=== PATIENT | male | born 1965 | race Caucasian/White ===

== ENCOUNTER 2016-09-24 18:39 | Emergency (ER) | payer MEDICAID ==
[~2016-09-24] VITALS: Ht 177.8 cm; Wt 86.2 kg
[2016-09-24 18:55] VITALS: BP_SYST 140
[2016-09-24] MEDS ORDERED: HYDROmorphone 1 MG INJ. 1 MG/ML AMPUL IM ONE (20:00)
[2016-09-24] MEDS ORDERED: DIPHENHYDRAMINE INJ 50 MG/ML VIAL IM ONE (20:00)
[2016-09-24 20:26] LABS: BASOPHILS # (AUTO) 0.1 K/uL (0.0-0.2); BASOPHILS % (AUTO) 0.7 % (0.0-2.0); EOSINOPHILS # (AUTO) 0.4 K/uL (0.0-0.4); EOSINOPHILS % (AUTO) 5.4 % (0.0-4.0); HEMATOCRIT 43.5 % (36-54); LYMPHOCYTES # (AUTO) 2.2 K/uL (1.0-5.5); LYMPHOCYTES % (AUTO) 27.1 % (20.5-51.5); MEAN CORPUSCULAR HEMOGLOBIN 31 pg (27-31); MEAN CORPUSCULAR HGB CONC 34 % (32-36); MEAN CORPUSCULAR VOLUME 90 fL (79.0-98.0); MONOCYTES # (AUTO) 0.7 K/uL (0.0-1.0); MONOCYTES % (AUTO) 8.1 % (1.7-9.3); NEUTROPHILS # (AUTO) 4.9 K/uL (1.8-7.7); NEUTROPHILS % (AUTO) 58.7 % (40.0-70.0); PLATELET COUNT (AUTO) 277 K/uL (130-430); RED BLOOD CELL COUNT(AUTO) 4.84 MIL/uL (4.2-6.2); RED CELL DISTRIBUTION WIDTH 12.4 % (9.0-15.0); WHITE BLOOD COUNT (AUTO) 8.3 K/uL (4.8-10.8)
[2016-09-24 20:39] LABS: POTASSIUM 4.1 mmol/L (3.5-5.1)
[2016-09-24 20:44] LABS: ALBUMIN 4.7 g/dL (3.4-4.8); TOTAL BILIRUBIN 0.6 mg/dL (0.0-1.0)
[2016-09-24 21:55] VITALS: BP_SYST 140
== END 2016-09-24 21:55 | disposition home or self-care (01) ==
LOC: SED 18:39
DX: M25.561 Pain in right knee (principal); G89.18 Other acute postprocedural pain; I10 Essential (primary) hypertension; Z88.2 Allergy status to sulfonamides; Z98.890 Other specified postprocedural states
CPT/HCPCS: 36415; 80053; 85025; 96372; 99284; J1170; J1200

== ENCOUNTER 2017-06-21 21:54 | Emergency (ER) | payer MEDICAID ==
[~2017-06-21] VITALS: Ht 177.8 cm; Wt 86.2 kg
[2017-06-21] MEDS ORDERED: FLUORESCEIN SODIUM 1 MG OPHTHALMIC STRIP OP ONE (21:55)
[2017-06-21] MEDS ORDERED: BALANCED SALT IRRIG SOLN 15 ML IO ONE (21:55)
[2017-06-21 22:17] VITALS: BP_SYST 128
[2017-06-22] MEDS ORDERED: DIPH-TET-PERTUS Vaccine 0.5 ML VIAL (ADACEL) I.M. ONE (01:30)
[2017-06-22 01:43] VITALS: BP_SYST 120
== END 2017-06-22 01:43 | disposition home or self-care (01) ==
LOC: SED 21:54
DX: T15.01XA Foreign body in cornea, right eye, initial encounter (principal); I10 Essential (primary) hypertension; Z88.2 Allergy status to sulfonamides; W22.8XXA Striking against or struck by other objects, initial encounter; Y93.89 Activity, other specified; Y92.89 Other specified places as the place of occurrence of the external cause; Y99.8 Other external cause status
CPT/HCPCS: 90715; 99284

== ENCOUNTER 2018-08-17 15:51 | Emergency (ER) | payer MEDICAID ==
[~2018-08-17] VITALS: Ht 175.3 cm; Wt 86.2 kg
[~2018-08-17 15:51] MED LIST: ALLO100T PO; ALPR0.5T PO; ATEN-168 PO
[2018-08-17 16:05] VITALS: BP_SYST 142
[2018-08-17] MEDS ORDERED: NACL 0.9% 1,000 ML IV ONE (16:13)
--- NOTE | 2018-08-17 16:40 | NUR ---
Placed in room 3 to gown for exam. Side rails up.
--- NOTE | 2018-08-17 16:41 | NUR ---
Patient is awake, alert, and oriented x4. He is complaining of sharp abdominal pain radiating to his back x2 weeks. Patient reports a history of HTN and diverticulitis.
--- NOTE | 2018-08-17 16:45 | NUR ---
ER Dr. Ruelas at bedside examining patient.
[2018-08-17 16:48] LABS: BILIRUBIN,URINE NEGATIVE (NEGATIVE); CLARITY/URINE CLEAR (CLEAR); COLOR,URINE YELLOW (YELLOW); GLUCOSE,URINE NEGATIVE (NEGATIVE); KETONES,URINE TRACE (NEGATIVE); LEUKOCYTE ESTERASE ,URINE NEGATIVE (NEGATIVE); NITRITE, URINE NEGATIVE (NEGATIVE); PH,URINE 5.5 (5.0-8.0); PROTEIN URINE NEGATIVE (NEGATIVE); UROBILINOGEN,URINE 0.2 (0.2-1.0)
[2018-08-17 16:50] LABS: BLOOD, URINE TRACE (NEGATIVE)
[2018-08-17 16:56] LABS: BACTERIA,URINE RARE /HPF (None Seen); MUCUS,URINE 1+ /LPF (None Seen); RBC,URINE 0-3 /HPF (0-3); WBC,URINE 0-3 /HPF (0-3)
[2018-08-17 17:11] LABS: HEMATOCRIT 51.5 % (36-54); HEMOGLOBIN 17.3 g/dL (14.0-18.0); MEAN CORPUSCULAR HEMOGLOBIN 32 pg (27-31); MEAN CORPUSCULAR HGB CONC 34 % (32-36); MEAN CORPUSCULAR VOLUME 93 fL (79.0-98.0); PLATELET COUNT (AUTO) 191 K/uL (130-430); RED BLOOD CELL COUNT(AUTO) 5.51 MIL/uL (4.2-6.2); RED CELL DISTRIBUTION WIDTH 13.1 % (9.0-15.0); WHITE BLOOD COUNT (AUTO) 12.7 K/uL (4.8-10.8)
[2018-08-17 17:18] LABS: CALCIUM 8.7 mg/dL (8.4-11.0); CREATININE 0.67 mg/dL (0.55-1.30); POTASSIUM 3.4 mmol/L (3.5-5.1)
[2018-08-17 17:23] LABS: ALBUMIN 3.6 g/dL (3.4-4.8); TOTAL BILIRUBIN 0.4 mg/dL (0.0-1.0)
[2018-08-17 17:29] LABS: BAND % (MANUAL) 1 % (0-6); BASOPHILS % (MANUAL) 0 % (0-2); EOSINOPHILS % (MANUAL) 17 % (0-7); LYMPHOCYTES % (MANUAL) 18 % (20-46); MONOCYTES % (MANUAL) 1 % (0-11)
[2018-08-17] MEDS ORDERED: ONDANSETRON HCL 4 MG/2 ML VIAL IVP ONE (18:30)
[2018-08-17] MEDS ORDERED: MORPHINE 4 MG/ML INJ. SYRINGE IVP ONE (18:30)
[2018-08-17] MEDS ORDERED: LACTULOSE 20 GM/30 ML UDC PO ONE (20:30)
--- NOTE | 2018-08-17 20:41 | NUR ---
Patient given written and verbal discharge instructions and verbalizes understanding. ER MD discussed with patient the results and treatment provided. Patient in stable condition. ID arm band removed. IV catheter removed intact and dressing applied, no active bleeding. Rx of LACTULOSE given. Patient educated on pain management and to follow up with PMD. Pain Scale 6/10. Opportunity for questions provided and answered. Medication side effect fact sheet provided.
[2018-08-17 20:42] VITALS: BP_SYST 136
== END 2018-08-17 20:42 | disposition home or self-care (01) ==
LOC: SED 15:51
DX: K56.7 Ileus, unspecified (principal); K59.00 Constipation, unspecified; F41.9 Anxiety disorder, unspecified; I10 Essential (primary) hypertension; Z88.2 Allergy status to sulfonamides; Z79.899 Other long term (current) drug therapy
CPT/HCPCS: 36415; 71045; 74176; 80053; 81000; 82550; 83690; 84484; 85007; 85027; 93005; 96361; 96374; 96375; 99284; J2270; J2405; J7030